=== PATIENT | female | born 1990 | race Caucasian/White ===

== ENCOUNTER 2018-03-24 17:29 | Emergency (ER) | payer OTHER ==
[~2018-03-24] VITALS: Ht 167.6 cm; Wt 59.0 kg
[~2018-03-24 17:29] MED LIST: ALBU90OI; ALBU90OI INH; ALBU90OI6; AMOX500 PO; Amoxicillin500 MG PO; CEPH500 PO; HYDACE5 PO; IBUP200; IBUP800 PO; MAGIC MOUTHWASH; MONT10T; OXYACE5T PO; PENVK500 PO; PROM25 PO; SULTRIDS PO; TRAM50 PO; [UNRECOGNIZED DRUG - OTHER]
[2018-03-24] MEDS ORDERED: Percocet 5-3251 EACH PO (19:59)
== END 2018-03-24 20:32 | disposition home or self-care (01) ==
LOC: ER 17:29
DX: S82.034A Nondisplaced transverse fracture of right patella, initial encounter for closed fracture (principal); S32.029A Unspecified fracture of second lumbar vertebra, initial encounter for closed fracture; F17.200 Nicotine dependence, unspecified, uncomplicated; Z79.899 Other long term (current) drug therapy; Z79.51 Long term (current) use of inhaled steroids; V47.5XXA Car driver injured in collision with fixed or stationary object in traffic accident, initial encounter
CPT/HCPCS: 71101; 72100; 72220; 73564; 96372; 99284-25; J1885

== ENCOUNTER 2018-12-26 13:26 | Emergency (ER) | payer SELFPAY ==
[~2018-12-26 13:26] MED LIST changes: +Percocet 5-3251 EACH PO
== END 2018-12-26 15:48 | disposition left against medical advice (07) ==
LOC: ER 13:26
DX: Z53.21 Procedure and treatment not carried out due to patient leaving prior to being seen by health care provider (principal)

== ENCOUNTER 2020-06-18 00:31 | Emergency (ER) | payer OTHER ==
[~2020-06-18] VITALS: Ht 167.6 cm; Wt 59.0 kg
[2020-06-18] MEDS ORDERED: AMOCLA875 PO (01:18)
== END 2020-06-18 01:53 | disposition home or self-care (01) ==
LOC: ER 00:31
DX: K02.9 Dental caries, unspecified (principal); F17.210 Nicotine dependence, cigarettes, uncomplicated
CPT/HCPCS: 99282

== ENCOUNTER 2021-04-13 06:55 | Inpatient (IN) | payer OTHER ==
[~2021-04-13 06:55] MED LIST changes: +AMOCLA875 PO
[2021-04-13 07:30] LABS: BASOPHILS ABSOLUTE AUTO 0.04 K/mm3 (0.00-0.23); BASOPHILS PERCENT AUTO 0 % (0-2); EOSINOPHILS ABSOLUTE AUTO 0.27 K/mm3 (0.00-0.68); EOSINOPHILS PERCENT AUTO 2 % (0-6); Hematocrit 41.7 % (33.0-51.0); Hemoglobin 14.2 g/dL (11.5-16.0); IMMATURE GRAN ABSOLUTE AUTO 0.17 K/mm3 (0.00-0.10); IMMATURE GRAN PERCENT AUTO 1 % (0-1); LYMPHOCYTES ABSOLUTE AUTO 3.36 K/mm3 (0.84-5.20); LYMPHOCYTES PERCENT AUTO 20 % (21-46); MONOCYTES ABSOLUTE AUTO 1.28 K/mm3 (0.16-1.47); MONOCYTES PERCENT AUTO 8 % (4-13); Mean Corpuscular HGB 29.4 pg (26.0-34.0); Mean Corpuscular HGB Conc 34.1 g/dL (31.5-36.5); Mean Corpuscular Volume 86 fL (80-100); Mean Platelet Volume 11.2 fL (9.1-12.4); NEUTROPHILS ABSOLUTE AUTO 11.62 K/mm3 (1.96-9.15); NEUTROPHILS PERCENT AUTO 70 % (41-73); NRBC ABSOLUTE 0.03 K/mm3 (0.00-0.02); NRBC Auto 0.2 /100 WBC (0.0-0.2); Platelet Count 400 K/mm3 (150-400); RDW Coefficient Variation 14.6 % (11.7-14.2); RDW Standard Deviation 46.3 fL (35.1-46.3); Red Blood Cell Count 4.83 M/mm3 (3.80-5.20); White Blood Cell Count 16.74 K/mm3 (4.00-11.30)
[2021-04-13] MEDS ORDERED: PRENATAL TABLE1 EAC2 (08:33)
[2021-04-13 08:57] LABS: Influenza A, PCR NEGATIVE (NEGATIVE); Influenza B, PCR NEGATIVE (NEGATIVE); Resp Syncytial Virus, PCR NEGATIVE (NEGATIVE); SARS-Cov-2 (COVID-19) PCR, MMC NEGATIVE (NEGATIVE)
[2021-04-13 09:25] LABS: U Amphetamine Screen DETECTED; U Barbituate Screen Not Detected; U Benzodiazapine Screen Not Detected; U Buprenorphine Screen Not Detected; U Cannabinoids Screen Not Detected; U Cocaine Screen Not Detected; U Methadone Screen Not Detected; U Methamphetamine Screen DETECTED; U Opiates Screen Not Detected; U Oxycodone Screen Not Detected; U Phencyclidine Screen Not Detected; U Propoxyphene Screen Not Detected
--- NOTE | 2021-04-13 11:41 | NUR ---
DR GUZMAN ON HER WAY IN
[2021-04-13 16:13] LABS: BASOPHILS ABSOLUTE AUTO 0.05 K/mm3 (0.00-0.23); BASOPHILS PERCENT AUTO 0 % (0-2); EOSINOPHILS PERCENT AUTO 1 % (0-6); Hematocrit 31.2 % (33.0-51.0); Hemoglobin 10.6 g/dL (11.5-16.0); IMMATURE GRAN ABSOLUTE AUTO 0.15 K/mm3 (0.00-0.10); IMMATURE GRAN PERCENT AUTO 1 % (0-1); LYMPHOCYTES ABSOLUTE AUTO 2.25 K/mm3 (0.84-5.20); LYMPHOCYTES PERCENT AUTO 12 % (21-46); MONOCYTES ABSOLUTE AUTO 1.31 K/mm3 (0.16-1.47); MONOCYTES PERCENT AUTO 7 % (4-13); Mean Corpuscular HGB 29.9 pg (26.0-34.0); Mean Corpuscular Volume 88 fL (80-100); Mean Platelet Volume 11.3 fL (9.1-12.4); NEUTROPHILS ABSOLUTE AUTO 15.38 K/mm3 (1.96-9.15); NEUTROPHILS PERCENT AUTO 80 % (41-73); Platelet Count 326 K/mm3 (150-400); RDW Coefficient Variation 14.6 % (11.7-14.2); RDW Standard Deviation 47.5 fL (35.1-46.3); Red Blood Cell Count 3.55 M/mm3 (3.80-5.20); White Blood Cell Count 19.24 K/mm3 (4.00-11.30)
--- NOTE | 2021-04-13 21:00 | NUR ---
Patient sleeping. Baby is asleep in bed with her. I woke patient up and placed baby in bassinet. Educated mom on putting baby in bassinet when she sleeps. Educated patient on dangers of sleeping with baby in the bed. Patient stated that the previous nurse told her this also and that she will not sleep with baby in bed again.
--- NOTE | 2021-04-14 00:30 | NUR ---
Patient is asleep with baby in bed with her. I woke patient up, placed baby in bassinet, and reeducated patient on not sleeping with baby in bed.
--- NOTE | 2021-04-14 03:30 | NUR ---
Patient is asleep with baby in bed. Woke patient up, reeducated patient about not sleeping with baby in bed. Offered to take baby out of room for a while so patient could sleep. Patient agreed to this. Baby out to nurses station.
[2021-04-14 05:30] LABS: BASOPHILS ABSOLUTE AUTO 0.04 K/mm3 (0.00-0.23); BASOPHILS PERCENT AUTO 0 % (0-2); EOSINOPHILS ABSOLUTE AUTO 0.26 K/mm3 (0.00-0.68); EOSINOPHILS PERCENT AUTO 2 % (0-6); Hematocrit 27.7 % (33.0-51.0); Hemoglobin 9.4 g/dL (11.5-16.0); IMMATURE GRAN ABSOLUTE AUTO 0.13 K/mm3 (0.00-0.10); IMMATURE GRAN PERCENT AUTO 1 % (0-1); LYMPHOCYTES ABSOLUTE AUTO 2.92 K/mm3 (0.84-5.20); LYMPHOCYTES PERCENT AUTO 20 % (21-46); MONOCYTES ABSOLUTE AUTO 1.04 K/mm3 (0.16-1.47); MONOCYTES PERCENT AUTO 7 % (4-13); Mean Corpuscular HGB Conc 33.9 g/dL (31.5-36.5); Mean Corpuscular Volume 89 fL (80-100); Mean Platelet Volume 11.1 fL (9.1-12.4); NEUTROPHILS ABSOLUTE AUTO 10.21 K/mm3 (1.96-9.15); NEUTROPHILS PERCENT AUTO 70 % (41-73); Platelet Count 293 K/mm3 (150-400); RDW Coefficient Variation 14.9 % (11.7-14.2); RDW Standard Deviation 47.8 fL (35.1-46.3); Red Blood Cell Count 3.13 M/mm3 (3.80-5.20)
--- NOTE | 2021-04-14 07:14 | NUR ---
Pt sleeping soundly in bed, SO asleep at bedside.
[2021-04-14 08:10] LABS: HIV SCREEN 4TH GENERATION WRFX Non Reactive (Non Reactive)
--- NOTE | 2021-04-14 09:50 | NUR ---
PT and SO asleep in bed when NB finsihed testing. Nb to desk for now.
--- NOTE | 2021-04-14 17:37 | NUR ---
Printed d/c instructions and teaching reviewed w/pt. Denies additional questions/concerns. Will d/c to boarder status when finished w/paperwork.
--- NOTE | 2021-04-14 20:29 | NUR ---
Pt attempted to feed baby while I was in the room.
== END 2021-04-14 19:05 | disposition home or self-care (01) | DRG 806 ==
LOC: OBS 06:55 → BC 06:56 → OBS 07:11 → BC 07:14
PROVIDERS: ADMIT Obstetrics & Gynecology
PROC: 10E0XZZ Delivery of Products of Conception, External Approach (ICD-10-PCS; principal; 2021-04-13)
PROC: 0HQ9XZZ Repair Perineum Skin, External Approach (ICD-10-PCS; 2021-04-13)
DX: O62.3 Precipitate labor (principal); O99.324 Drug use complicating childbirth; Z37.0 Single live birth; O70.0 First degree perineal laceration during delivery; F15.10 Other stimulant abuse, uncomplicated; Z3A.00 Weeks of gestation of pregnancy not specified; O77.0 Labor and delivery complicated by meconium in amniotic fluid
CPT/HCPCS: 0241U; 36415; 85025; 86317; 86592; 86762; 86850; 86900; 86901; 87071; 87075; 87205; 87389; 88307; A9270; G0480; J0290; J0690; J1885; J2210; J2590; J7120

== ENCOUNTER 2021-10-15 21:32 | Emergency (ER) | payer OTHER ==
[~2021-10-15] VITALS: Ht 167.6 cm; Wt 72.6 kg
[~2021-10-15 21:32] MED LIST changes: +PRENATAL TABLE1 EAC2
[2021-10-15 22:53] LABS: Source, Urine Clean Catch
[2021-10-15 22:53] LABS: BASOPHILS ABSOLUTE AUTO 0.03 K/mm3 (0.00-0.23); BASOPHILS PERCENT AUTO 0 % (0-2); EOSINOPHILS PERCENT AUTO 4 % (0-6); Hematocrit 35.4 % (33.0-51.0); Hemoglobin 11.5 g/dL (11.5-16.0); IMMATURE GRAN ABSOLUTE AUTO 0.03 K/mm3 (0.00-0.10); IMMATURE GRAN PERCENT AUTO 0 % (0-1); LYMPHOCYTES ABSOLUTE AUTO 2.62 K/mm3 (0.84-5.20); LYMPHOCYTES PERCENT AUTO 29 % (21-46); MONOCYTES ABSOLUTE AUTO 0.81 K/mm3 (0.16-1.47); MONOCYTES PERCENT AUTO 9 % (4-13); Mean Corpuscular HGB 28.5 pg (26.0-34.0); Mean Corpuscular HGB Conc 32.5 g/dL (31.5-36.5); Mean Corpuscular Volume 88 fL (80-100); Mean Platelet Volume 9.4 fL (9.1-12.4); NEUTROPHILS ABSOLUTE AUTO 5.29 K/mm3 (1.96-9.15); NEUTROPHILS PERCENT AUTO 58 % (41-73); Platelet Count 366 K/mm3 (150-400); RDW Coefficient Variation 15.2 % (11.7-14.2); RDW Standard Deviation 49.6 fL (35.1-46.3); Red Blood Cell Count 4.03 M/mm3 (3.80-5.20); White Blood Cell Count 9.18 K/mm3 (4.00-11.30)
[2021-10-15 22:56] LABS: Bilirubin, Urine Neg (Neg); Blood, Urine 5+ (Neg); Glucose Qualitative, Urine Neg (Neg); Ketones, Urine Neg (Neg); Leukocyte Esterase, Urine Neg (Neg); Nitrite, Urine Neg (Neg); Protein, Urine Neg (Neg); Urobilinogen, Urine NORM (Normal)
[2021-10-15 23:14] LABS: Appearance, Urine Clear (Clear); Color, Urine Yellow (P-Yellow)
[2021-10-15 23:15] LABS: Bacteria Rare /hpf; Squamous Epithelial Cells Few /hpf (Few); White Blood Cells, Urine Not Seen /hpf (0-5)
[2021-10-15 23:30] LABS: Alanine Aminotransfer (ALT/SGP 26 U/L (12-78); Albumin, Blood 3.8 g/dL (3.4-5.0); Albumin/Globulin Ratio 1.2 (0.8-1.8); Alk Phos 60 U/L (50-136); Anion Gap 6 mmol/L (6-16); Aspartate Aminotrans (AST/SGOT 14 U/L (12-37); Bilirubin, Total 0.2 mg/dL (0.1-1.0); Blood Urea Nitrogen 9 mg/dL (8-24); Bun/Creatinine Ratio 17.3 (12.0-20.0); CO2, Blood 24 mmol/L (21-32); Calcium, Blood 8.7 mg/dL (8.5-10.1); Chloride, Blood 106 mmol/L (98-108); Creatinine, Blood 0.52 mg/dL (0.40-1.00); Globulin, Blood 3.3 g/dL (2.2-4.0); Glomerular Filtration Rate >60 (60-); Glucose, Blood 88 mg/dL (70-99); Potassium, Blood 4.1 mmol/L (3.5-5.5); Sodium, Blood 136 mmol/L (136-145); Total Protein, Blood 7.1 g/dL (6.4-8.2)
[2021-10-15 23:34] LABS: Beta HCG, Quantitative, Serum 68995 mIU/mL (0-3)
[2021-10-16] MEDS ORDERED: NITR100CA PO (00:40)
== END 2021-10-16 00:51 | disposition home or self-care (01) ==
LOC: ER 21:32
PROVIDERS: Student in an Organized Health Care Education/Training Program
DX: O20.0 Threatened abortion (principal); O99.891 Other specified diseases and conditions complicating pregnancy; R82.71 Bacteriuria; O99.331 Smoking (tobacco) complicating pregnancy, first trimester; F17.210 Nicotine dependence, cigarettes, uncomplicated; Z3A.10 10 weeks gestation of pregnancy
CPT/HCPCS: 76801; 80053; 81001; 84702; 85025; 86900; 86901; 99284-25; A9270

== ENCOUNTER 2023-03-30 19:01 | Inpatient (IN) | payer OTHER ==
[~2023-03-30] VITALS: Ht 172.7 cm; Wt 64.9 kg
[~2023-03-30 19:01] MED LIST changes: +NITR100CA PO
[2023-03-30 22:30] VITALS: BP 142/98
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
[2023-03-30 23:53] LABS: Hematocrit 36.7 % (33.0-51.0); Hemoglobin 12.4 g/dL (11.5-16.0); Mean Corpuscular HGB 28.6 pg (26.0-34.0); Mean Corpuscular HGB Conc 33.8 g/dL (31.5-36.5); Mean Corpuscular Volume 85 fL (80-100); Mean Platelet Volume 9.2 fL (9.1-12.4); Platelet Count 328 K/mm3 (150-400); RDW Coefficient Variation 13.6 % (11.7-14.2); RDW Standard Deviation 42.3 fL (35.1-46.3); Red Blood Cell Count 4.33 M/mm3 (3.80-5.20); White Blood Cell Count 16.01 K/mm3 (4.00-11.30)
[2023-03-31] VITALS (29 sets, daily range): BP systolic 111–138; BP diastolic 73–120
[2023-03-31 00:49] LABS: Bun/Creatinine Ratio 15.6 (12.0-20.0); Calcium, Blood 8.9 mg/dL (8.5-10.1); Creatinine, Blood 0.77 mg/dL (0.40-1.00); Potassium, Blood 3.8 mmol/L (3.5-5.5)
--- NOTE | 2023-03-31 03:03 | NUR ---
NEURO UPDATE PT IS AWAKE AT THIS TIME, A&O X3, PT IS ATTEMPTING TO GET OOB, PT EDUCATED ABOUT ACTIVITY RESTRICTIONS/SAFETY PRECAUTIONS, PT IS UNRECEPTIVE, THRASHING IN BED, C/O PAIN, ASKING TO GO HOME. PAIN/ANXIETY MEDICATED AT THIS TIME, CAP REFILL TO R.LEG WAS 7 SECONDS, PRICE BANDAGE WAS REAPPLIED, MEDICAL RECORDS COORDINATOR AT BEDSIDE TO ASSIST, CAP REFILL IMPROVED BUT REMAINS >3 SEC, LEG ELEVATED. WCTM CALL LIGHT IN REACH.
[2023-03-31 05:45] LABS: U Amphetamine Screen DETECTED; U Barbituate Screen Not Detected; U Benzodiazapine Screen DETECTED; U Buprenorphine Screen Not Detected; U Cannabinoids Screen Not Detected; U Cocaine Screen Not Detected; U Methadone Screen Not Detected; U Methamphetamine Screen DETECTED; U Opiates Screen DETECTED; U Oxycodone Screen Not Detected; U Phencyclidine Screen Not Detected; U Propoxyphene Screen Not Detected
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
--- NOTE | 2023-03-31 06:45 | NUR ---
NOTIFIED NOTIFIED OF PT'S INCREASED PAIN, DECREASED CAP REFILL OF 10 SEC IN R.LEG, HOSPITALIST CONSULT WAS ORDERED, FURTHER MONITORING & CURRENT PAIN MEDS TO BE GIVEN PER . NOTIFIED, HE CAME TO ASSESS PT, SPLINT & DRSG WAS REMOVED FROM RIGHT LEG, BRUISING/SWELLING NOTED, KINJAL STATES NO SIGN OF COMPARTMENT SYNDROME AT THIS TIME, SPLINT WAS REPLACED, PRICE WRAP APPLIED, CAP REFILL OF 6 SEC NOTED, BOTH LEGS ELEVATED ON PILLOWS, 1 MG IV DILAUDID WAS GIVEN, BED ALARM IS ON, CALL LIGHT IN REACH.
--- NOTE | 2023-03-31 06:50 | NUR ---
SUMMARY PLEASE SEE PREVIOUS NOTES, BEDSIDE REPORT GIVEN TO MARISSA ELLISON, PT IS RESTING QUIETLY AT THIS TIME, BILATERAL EXT ELEVATED, RESP UNLABORED, CALL LIGHT IN REACH, BED ALARM IS ON.
--- NOTE | 2023-03-31 10:44 | NUR ---
AT APROX 1013 MD TO ROOM. PT VERY AGGITATED, KICKING HER LEGS/THRASHING IN BED. CIWA SCORE BY PREV RN 14. MD ORDER TO GIVE 2MG DILAUDID AND 2MG ATIVAN AT THAT TIME. PULSE OX PLAC
--- NOTE | 2023-03-31 16:31 | NUR ---
ASSUMPTION OF CARE PT TO ROOM VIA HOSPITAL BED, TRANSFERED TO ICU BED VIA SLIDDER SHEET. REPORT RECEIVED FROM MARISSA ELLISON. PT SLEEPING, MOANS WITH MOVEMENT. HR 90'S SINUS RHYTHM, MAP >65. LUNG SOUNDS CLEAR, OXYGEN SATURATION >95% ON RA. PIV TO LAC SL. CASTS TO BLE, BLE WARM TO THE TOUCH WITH CAP REFILL <3 SECONDS.
--- NOTE | 2023-03-31 18:25 | NUR ---
SHIFT SUMMARY PT ALERT, ATTEMPTING TO CRAWL OUT OF BED, HITTING AND THREATENING STAFF. CIWA SCORE >16. PRECEDEX INFUSING AT 0.7MCG/KG. HR 80'S SR, MAP >65. PT COMPLAINING OF HAVING TO URINATE, BLADDER SCANNER SHOWED 530MLS. PT PLACED ON BEDPAN MULTIPLE TIMES WHICH SHE REFUSED TO USE, PT REFUSED JOHNS PLACEMENT AND EVENTUALLY USED BEDPAN. PT ON RA OXYGEN SATURATION >95%. PIV TO LAC INFUSING. BILATERAL CASTS IN PLACE TO LOWER EXTREMITIES.
--- NOTE | 2023-03-31 20:41 | NUR ---
ASSUMED CARE OF PATIENT AT 1900. REPORT RECEIVED FROM TANYA RN AND DANNA RN. VSS, PT STATING SHE NEEDS TO USE RESTROOM. SHE ATTEMPTED TO GET OOB AND WAS PUNCHING AND THREATENING STAFF. RESTRAINTS PLACED AND BEDPAN WAS PLACED AND EMPTIED POST VOID. NO OTHER NEEDS IDENTIFIED AT THIS TIME. SEE SHIFT ASSESSMENT FOR FULL ASSESSMENT DETAILS.
[2023-04-01] VITALS (66 sets, daily range): BP systolic 91–158; BP diastolic 43–139
[2023-04-01 01:04] LABS: Source, Urine Foley catheter
[2023-04-01 01:18] LABS: Appearance, Urine Clear (Clear); Bilirubin, Urine Neg (Neg); Blood, Urine 1+ (Neg); Color, Urine Yellow (P-Yellow); Glucose Qualitative, Urine Neg (Neg); Ketones, Urine Neg (Neg); Leukocyte Esterase, Urine Neg (Neg); Nitrite, Urine Neg (Neg); Protein, Urine Neg (Neg); Urobilinogen, Urine NORM (Normal)
[2023-04-01 01:43] LABS: Bacteria Rare /hpf; Squamous Epithelial Cells Rare /hpf (Few); White Blood Cells, Urine 0-2 /hpf (0-5)
[2023-04-01 03:26] LABS: BASOPHILS ABSOLUTE AUTO 0.01 K/mm3 (0.00-0.23); BASOPHILS PERCENT AUTO 0 % (0-2); EOSINOPHILS PERCENT AUTO 0 % (0-6); Hematocrit 31.6 % (33.0-51.0); Hemoglobin 10.8 g/dL (11.5-16.0); IMMATURE GRAN ABSOLUTE AUTO 0.06 K/mm3 (0.00-0.10); IMMATURE GRAN PERCENT AUTO 1 % (0-1); LYMPHOCYTES ABSOLUTE AUTO 1.61 K/mm3 (0.84-5.20); LYMPHOCYTES PERCENT AUTO 12 % (21-46); MONOCYTES ABSOLUTE AUTO 2.08 K/mm3 (0.16-1.47); MONOCYTES PERCENT AUTO 16 % (4-13); Mean Corpuscular HGB 28.9 pg (26.0-34.0); Mean Corpuscular HGB Conc 34.2 g/dL (31.5-36.5); Mean Corpuscular Volume 85 fL (80-100); Mean Platelet Volume 9.9 fL (9.1-12.4); NEUTROPHILS ABSOLUTE AUTO 9.27 K/mm3 (1.96-9.15); NEUTROPHILS PERCENT AUTO 71 % (41-73); Platelet Count 299 K/mm3 (150-400); RDW Coefficient Variation 14.1 % (11.7-14.2); RDW Standard Deviation 43.7 fL (35.1-46.3); Red Blood Cell Count 3.74 M/mm3 (3.80-5.20); White Blood Cell Count 13.03 K/mm3 (4.00-11.30)
[2023-04-01 03:49] LABS: Bun/Creatinine Ratio 12.9 (12.0-20.0); Calcium, Blood 8.7 mg/dL (8.5-10.1); Creatinine, Blood 0.78 mg/dL (0.40-1.00); Magnesium, Blood 1.8 mg/dL (1.6-2.4)
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
--- NOTE | 2023-04-01 08:30 | NUR ---
CARE OF PT ASSUMED AT 0700. PT AGITATED, YELLING, THRASHING IN BED. SOFT WRIST RESTRAINTS ON BILAT, PT PULLING AT LINES AND ATTEMPTING TO GET OUT OF BED, DESPITE PRECEDEX GTT AT 1.4MCG. PT IS NOT REDIRECTABLE. S/P BILAT ORIF OF ANKLES. TOES WARM W GOOD CAP REFILL. HAIR MATTED W DRIED BLOOD. HAIR CLEANED TO REVEAL SMALL LAC AT BACK OF HEAD RIGHT ABOVE OCCIPITAL BONE. LACERATION IS OOZING A SMALL AMOUNT. MANUAL BP TAKEN PT IS MOVING TOO MUCH FOR MONITOR. PT AFEBRILE, SINUS TACH W RATE 100-120. THERE IS SOME BLOOD IN CATHETER D/T PT PULLING ON CATHETER. PRECEDEX GTT TURNED OFF AT 0745 TO ASSESS PT. PRECEDEX REMAINS OFF, AT THIS TIME PT NPO FOR SAFETY UNTILL SHE IS AWAKE AND ALERT AND ABLE TO SWALLOW SAFELY.
--- NOTE | 2023-04-01 09:32 | NUR ---
DR HALE IN TO SEE PT. PT HAD BEEN OFF PRECEDEX X 60MIN. PT AWAKE, CONFUSED, AGITATED, RESTLESS, NOT REDIRECTABLE. PRECEDEX DC'D, VERSED GTT ORDERED AND STARTED AT 1MG/HR. IV DILAUDID ORDERED PT UNABLE TO TAKE PO AT THIS TIME. HCG NEG.
--- NOTE | 2023-04-01 12:48 | NUR ---
PT IS RESPONDING WELL TO DILAUDID AND VERSED GTT. PT IS CALM AND SLEEPING, AWAKENS WHEN SPOKEN TO, REMAINS CONFUSED BUT SOME OF HER SPEECH IS MORE UNDERSTANDABLE. ABLE TO GIVE PT FULL BED BATH, ELEVATE LEGS, AND PLACE ICE ON ANKLES. 1:1 SITTER AT BEDSIDE BRUSHING PT'S KNOTS OUT. LOW GRADE TEMP 100.0. DR HAYWARD GIVEN UPDATE.
--- NOTE | 2023-04-01 14:03 | NUR ---
JOHNS CATH REMOVED. PT WOKE UP FOR REMOVAL, ALTHOUGH PT REMAINS CONFUSED, HER CONVERSTAION WAS MORE APPROPRIATE; PT ASKED WHERE SHE WAS, PT ALSO USED SOME PROFANITY AND MILD VERBAL THREATS AGAINST STAFF. WORDS MORE CLEAR AND UNDERSTANDABLE. VERSED AT 2MG/HR. DILAUDID PRN FOR PAIN. BILAT LEGS ELEVATED ON PILLOWS, ICE PACKS PLACED.
--- NOTE | 2023-04-01 15:48 | NUR ---
PT WOKE UP CRYING, C/O PAIN TO CHEST/NECK, BACK, AND BILAT LEGS. PT ABLE TO STATE, "PAIN IS JUST ABOUT A 10". DILAUDID 2MG IVP GIVEN. VERSED REMAINS AT 2MG/HR. PT REMAINS CONFUSED BUT SLIGHTLY MORE REDIRECTABLE. DR HALE IN TO CHECK ON PT; UPDATE GIVEN.
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
--- NOTE | 2023-04-01 17:12 | NUR ---
30.8CC CLEARED FROM VERSED GTT PUMP WITH TANYA Celis RN
--- NOTE | 2023-04-01 17:43 | NUR ---
PT WOKE UP WITH C/O PAIN EVERYWHERE. PT ASKED WHERE SHE WAS AND WHY SHE WAS HURTING; PT RE-ORIENTED TO SITUATION. PT ATTEMPTED TO USE BEDPAN, FOLLOWING SIMPLE COMMANDS. RESTRAINTS DC'D. BED ALARM ON. VERSED AT 2MG/HR. PT ABLE TO TAKE SIPS OF WTAER SAFELY. LEGS ELEVATED, PT ASSISTED TO SIDE. ICE TO BILAT ANKLES. RASH IMPROVED, PT DENIES ITCHING.
--- NOTE | 2023-04-01 19:47 | NUR ---
PATIENT SLEEPING, AWAKENS TO STIMULI, NOT ANSWERING QUESTIONS. STATED "LEAVE ME ALONE" PATIENT REPOSITIONED TO HER BACK WITH BOTH LEGS ELEVATED ON PILLOWS AND ICE PACKS PLACED TO ANKLES, PATIENT GREER WELL. DRESSINGS TO BOTH LEGS CD&I. VERSED 2 MG/HR INFUSING.
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
--- NOTE | 2023-04-01 22:17 | NUR ---
PATIENT RESTLESS, VERBALIZED "I KEEP FORGETTING I'M NOT AT HOME" "ARE YOU SURE THEY ARE BROKEN" (REGARDING HER ANKLES) ASSISTED ONTO THE BEDPAN UNABLE TO VOID BLADDER SCAN DONE SHOWING 280 CC OF URINE. ATTENDS REMAIN IN PLACE, CONTINUES TO HAVE SMALL AMT OF BRIGHT RED MENSTRUATION
[2023-04-02] VITALS (24 sets, daily range): BP systolic 96–139; BP diastolic 64–125
[2023-04-02 04:21] LABS: BASOPHILS ABSOLUTE AUTO 0.03 K/mm3 (0.00-0.23); BASOPHILS PERCENT AUTO 0 % (0-2); EOSINOPHILS PERCENT AUTO 1 % (0-6); Hematocrit 32.5 % (33.0-51.0); Hemoglobin 10.9 g/dL (11.5-16.0); IMMATURE GRAN ABSOLUTE AUTO 0.03 K/mm3 (0.00-0.10); IMMATURE GRAN PERCENT AUTO 0 % (0-1); LYMPHOCYTES ABSOLUTE AUTO 1.98 K/mm3 (0.84-5.20); LYMPHOCYTES PERCENT AUTO 21 % (21-46); MONOCYTES ABSOLUTE AUTO 1.47 K/mm3 (0.16-1.47); MONOCYTES PERCENT AUTO 15 % (4-13); Mean Corpuscular HGB 28.8 pg (26.0-34.0); Mean Corpuscular HGB Conc 33.5 g/dL (31.5-36.5); Mean Corpuscular Volume 86 fL (80-100); Mean Platelet Volume 9.6 fL (9.1-12.4); NEUTROPHILS ABSOLUTE AUTO 5.91 K/mm3 (1.96-9.15); NEUTROPHILS PERCENT AUTO 62 % (41-73); Platelet Count 293 K/mm3 (150-400); RDW Coefficient Variation 14.1 % (11.7-14.2); RDW Standard Deviation 44.2 fL (35.1-46.3); Red Blood Cell Count 3.78 M/mm3 (3.80-5.20); White Blood Cell Count 9.52 K/mm3 (4.00-11.30)
[2023-04-02 04:57] LABS: Albumin, Blood 3.3 g/dL (3.4-5.0); Albumin/Globulin Ratio 0.9 (0.8-1.8); Bilirubin, Total 0.7 mg/dL (0.1-1.0); Bun/Creatinine Ratio 13.4 (12.0-20.0); Calcium, Blood 8.8 mg/dL (8.5-10.1); Creatinine, Blood 0.67 mg/dL (0.40-1.00); Globulin, Blood 3.6 g/dL (2.2-4.0); Potassium, Blood 3.4 mmol/L (3.5-5.5); Total Protein, Blood 6.9 g/dL (6.4-8.2)
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
--- NOTE | 2023-04-02 18:50 | NUR ---
SHIFT SUMMARY PATIENT SLEPT OFF AND ON T/O SHIFT. VERSED GTT OFF SINCE 829. MEDICATED FOR PAIN WITH DILAUDID, SUBOXONE, NORCO, AND TYLENOL PER EMAR. PATIENT CONTINUES TO C/O CHEST/RIB PAIN AND OVERALL SORENESS. MINIMAL PAIN PRESENT IN ANKLES. ABLE TO GET PATIENT UP TO BSC AND CHAIR USING SLING LIFT. GOOD URINE OUTPUT THIS THIFT. NO BM. PATIENT STILL ON MENSES WITH LARGE ATTENDS AND PERIPAD IN PLACE. DIET STARTED, TOLERATED WELL. HIGHEST CIWA 6. NO OTHER CHANGES THIS SHIFT.
[2023-04-03 00:01] VITALS: BP 131/76
[2023-04-03 03:41] LABS: BASOPHILS ABSOLUTE AUTO 0.03 K/mm3 (0.00-0.23); BASOPHILS PERCENT AUTO 0 % (0-2); EOSINOPHILS ABSOLUTE AUTO 0.32 K/mm3 (0.00-0.68); EOSINOPHILS PERCENT AUTO 3 % (0-6); Hematocrit 31.5 % (33.0-51.0); Hemoglobin 10.6 g/dL (11.5-16.0); IMMATURE GRAN ABSOLUTE AUTO 0.03 K/mm3 (0.00-0.10); IMMATURE GRAN PERCENT AUTO 0 % (0-1); LYMPHOCYTES ABSOLUTE AUTO 2.25 K/mm3 (0.84-5.20); LYMPHOCYTES PERCENT AUTO 24 % (21-46); MONOCYTES ABSOLUTE AUTO 1.23 K/mm3 (0.16-1.47); MONOCYTES PERCENT AUTO 13 % (4-13); Mean Corpuscular HGB 28.6 pg (26.0-34.0); Mean Corpuscular HGB Conc 33.7 g/dL (31.5-36.5); Mean Corpuscular Volume 85 fL (80-100); Mean Platelet Volume 9.4 fL (9.1-12.4); NEUTROPHILS ABSOLUTE AUTO 5.69 K/mm3 (1.96-9.15); NEUTROPHILS PERCENT AUTO 60 % (41-73); Platelet Count 330 K/mm3 (150-400); RDW Coefficient Variation 13.7 % (11.7-14.2); Red Blood Cell Count 3.71 M/mm3 (3.80-5.20); White Blood Cell Count 9.55 K/mm3 (4.00-11.30)
[2023-04-03 04:07] LABS: Albumin, Blood 3.1 g/dL (3.4-5.0); Albumin/Globulin Ratio 0.8 (0.8-1.8); Bilirubin, Total 0.4 mg/dL (0.1-1.0); Bun/Creatinine Ratio 14.1 (12.0-20.0); Calcium, Blood 8.9 mg/dL (8.5-10.1); Creatinine, Blood 0.64 mg/dL (0.40-1.00); Globulin, Blood 3.8 g/dL (2.2-4.0); Potassium, Blood 3.8 mmol/L (3.5-5.5); Total Protein, Blood 6.9 g/dL (6.4-8.2)
[2023-04-03 06:03] VITALS: BP 126/80
--- NOTE | 2023-04-03 06:15 | NUR ---
SHIFT SUMMARY: NO ACUTE CHANGES OVERNIGHT; PT REMAINS A&O X 4, COOPERATIVE WITH CARE. PT HAS MADE NUMEROUS COMMENTS ABOUT THE DESIRE TO GO HOME TODAY; THIS RN EDUCATED PT THAT MOST LIKELY PT WILL NEED TO STAY ANOTHER NIGHT. PT VERY ADAMENT ABOUT WANTING TO GO HOME TO BE WITH HER 2-YEAR-OLD SON. PT VERY RESTLESS THROUGHOUT NIGHT AND NEEDING PAIN MEDS AROUND THE CLOCK TO MANAGE PAIN THIS SHIFT. PT VSS THROUHGOUT THE SHIFT. PT ON RA, DENIES SOB. SR-ST ON MONITOR WITH SBP 120-130'S. PT DENIES CHEST PAIN AT THIS TIME. PT C/P PAIN IN BLE AND RIBS RATING 8/10. PT REPOSITIONS INDEPENDENTLY IN BED. PT USING BEDPAN IN BED WITH ASSISTANCE FOR ELIMINATION NEEDS. PT CONTINUES TO MENTRATE; MODERATE BLOOD NOTED WITH EVERY DEPENDS CHANGE. PT TOLERATING PO INTAKE. PT COMMUNICATES NEEDS APPROPRIATELY; BED LOWERED, CALL LIGHT IN REACH, WILL CONTINUE TO MONITOR UNTIL ONCOMING RN ARRIVES.
[2023-04-03 08:07] VITALS: BP 122/75
[2023-04-03 11:41] VITALS: BP 146/83
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
--- NOTE | 2023-04-03 12:16 | NUR ---
UPDATE THIS RN SPOKE W DR. URBAN AND NOTIFIED HER OF THE PT'S DESIRE TO DISCHARGE TODAY. DR. URBAN INSTRUCTING THIS RN THAT SHE WANTS TO SEE HER IN TWO WEEKS AND STATES SHE BELIEVES THE PT IS OK TO DISCHARGE. DR. HALE UPDATED AND DC ORDERS PENDING.
[2023-04-03] MEDS ORDERED: HYDR1TAB94 PO (12:37)
--- NOTE | 2023-04-03 14:16 | NUR ---
UPDATE WHILE THE PT IS READY FOR DISCHARGE SHE NOT ABLE TO SECURE A RIDE FROM THE HOSPITAL. THIS RN SPOKE TO CARE MANAGEMENT WHO IS ORDERING A WHEEL CHAIR FOR THE PT SO THAT A RIDE FROM A WC ACCESSIBLE VAN CAN BE PROVIDED FOR THE PT. WIRE TWISTER NOTIFIED.
--- NOTE | 2023-04-03 16:00 | NUR ---
DISCHARGE PT DISCHARGED TO HOME VIA AMBULANCE VAN. [facility] AND [facility] IN IT. PT ABLE TO TRANSFER HERSELF TO INDEPENDENTLY. DISCHARGE INSTRUCTIONS GIVEN REGARDING ACTIVITY RESTRICTIONS AND FOLLOW UP APPOINTMENTS. SCRIPT FOR PAIN MEDICATION GIVEN TO PT. ALL BELGONINGS RETURNED TO PT INCLUDING JEWELRY (2 BRACELETS AND 3 RINGS). POWERGLIDE REMOVED WITHOUT COMPLICATION.
== END 2023-04-03 15:55 | disposition home or self-care (01) | DRG 493 ==
LOC: ER 19:01 → SURS 21:31 → ICUE 21:31 → SURS 22:35 → ICUE 03-31 13:31
PROVIDERS: Hospitalist; Internal Medicine; ADMIT Orthopaedic Surgery
PROC: 0QSJ06Z Reposition Right Fibula with Intramedullary Internal Fixation Device, Open Approach (ICD-10-PCS; 2023-03-31)
PROC: 0QSH04Z Reposition Left Tibia with Internal Fixation Device, Open Approach (ICD-10-PCS; 2023-03-31)
PROC: 0QSG04Z Reposition Right Tibia with Internal Fixation Device, Open Approach (ICD-10-PCS; 2023-03-31)
PROC: 0QSK06Z Reposition Left Fibula with Intramedullary Internal Fixation Device, Open Approach (ICD-10-PCS; principal; 2023-03-31 09:30)
DX: S82.871A Displaced pilon fracture of right tibia, initial encounter for closed fracture (principal); F11.93 Opioid use, unspecified with withdrawal; F15.93 Other stimulant use, unspecified with withdrawal; S82.872A Displaced pilon fracture of left tibia, initial encounter for closed fracture; F17.210 Nicotine dependence, cigarettes, uncomplicated; S82.832A Other fracture of upper and lower end of left fibula, initial encounter for closed fracture; S82.831A Other fracture of upper and lower end of right fibula, initial encounter for closed fracture; V89.2XXA Person injured in unspecified motor-vehicle accident, traffic, initial encounter; F10.90 Alcohol use, unspecified, uncomplicated; Z79.51 Long term (current) use of inhaled steroids; Z79.899 Other long term (current) drug therapy
CPT/HCPCS: 29515; 36415; 51702; 71045; 73600; 73700; 80048; 80053; 81001; 81025; 83735; 85025; 85027; 96374-59; 96375-59; 97161; 97530; 99285-25; A9270; C1713; C1751; C1769; J0690; J1100; J1170; J1200; J1630; J1650; J1885; J2060; J2250; J2405; J2704; J3010; J7050

== ENCOUNTER 2023-04-05 16:36 | Emergency (ER) | payer OTHER ==
[~2023-04-05] VITALS: Ht 167.6 cm; Wt 63.5 kg
[~2023-04-05 16:36] MED LIST changes: +HYDR1TAB94 PO
[2023-04-05 16:50] VITALS: BP 136/89
[2023-04-06] MEDS ORDERED: Norco 5-325 Ta1 EACH PO (16:49)
== END 2023-04-06 17:14 | disposition home or self-care (01) ==
LOC: ER 16:36
DX: S82.871D Displaced pilon fracture of right tibia, subsequent encounter for closed fracture with routine healing (principal); S82.872D Displaced pilon fracture of left tibia, subsequent encounter for closed fracture with routine healing; F17.210 Nicotine dependence, cigarettes, uncomplicated; V89.2XXD Person injured in unspecified motor-vehicle accident, traffic, subsequent encounter; Z88.1 Allergy status to other antibiotic agents
CPT/HCPCS: 96372; 99284; A9270; J1885